=== PATIENT | female | born 1995 | race Caucasian/White ===

== ENCOUNTER 2018-10-13 13:51 | Emergency (ER) | payer MEDICAID ==
[~2018-10-13] VITALS: Ht 167.6 cm; Wt 63.0 kg
[2018-10-13 14:08] VITALS: BP 109/82
== END 2018-10-13 16:43 | disposition left against medical advice (07) ==
LOC: ER 13:51
DX: Z53.21 Procedure and treatment not carried out due to patient leaving prior to being seen by health care provider (principal)